=== PATIENT | male | born 1955 | race Caucasian/White ===

== ENCOUNTER 2022-01-14 01:46 | Emergency (ER) | payer MEDICARE ==
[~2022-01-14] VITALS: Ht 180.3 cm; Wt 122.5 kg
[~2022-01-14 01:46] MED LIST: METOLAZONE5 MG PO
--- OUTSIDE RECORDS SUMMARY | 2022-01-14 01:54 | XMS ---
PreManage Notification: CORNELIO SENIOR Security Internal Wholesaler Events No recent Security Events currently on file CRITERIA MET - [facility] - 2 Visits in 30 Days - 6 ED Visits in 6 Months - [facility] - 3 Facilities in 90 Days CARE PROVIDERS [place] Nurse Practitioner: Family Current PHONE: [phone] Isela has no Care Guidelines for this patient. E.D. VISIT COUNT (12 MO.) 8 Sammie Ayala 4 [facility] 1 [facility] ED 2 [facility] NOTE: Visits indicate total known visits. ED/C VISIT TRACKING (12 MO.) 01/14/2022 01:47 KELSY Catherine TYPE: Emergency COMPLAINT: - SHORTNESS OF BREATH 01/13/2022 16:03 KELSY Diamond [place] TYPE: Emergency COMPLAINT: - CHEST PAIN 01/05/2022 07:05 [facility] Luci [facility] TYPE: Emergency DIAGNOSES: - Heart failure, unspecified - COVID-19 - Acute respiratory failure, unspecified whether with hypoxia or hypercapnia - Shortness of Breath 01/05/2022 00:40 [facility] TYPE: Emergency DIAGNOSES: - Shortness of breath - Shortness of Breath 01/01/2022 08:20 [facility] López [facility] TYPE: Emergency COMPLAINT: - Shortness of Breath_1821- SOB - SHORTNESS OF BREATH - SUICIDAL IDEATIONS DIAGNOSES: 0. Suicidal ideations 1. Supraventricular tachycardia 4. Chronic obstructive pulmonary disease, unspecified 5. Heart failure, unspecified 6. watermelon inspector (current) use of insulin 7. watermelon inspector (current) use of aspirin 8. Other fpc (current) drug therapy 9. Personal history of nicotine dependence 12/31/2021 11:04 Devyn López [facility] TYPE: Emergency COMPLAINT: - Suicidal_ambulance 1823 12/19/2021 15:27 Merged With [facility] Olivier [facility] TYPE: Emergency DIAGNOSES: - Acute and chronic respiratory failure with hypoxia - Type 2 diabetes mellitus with hyperglycemia - Chronic obstructive pulmonary disease, unspecified - Atherosclerotic heart disease of [place] coronary artery without angina pectoris - Nonrheumatic mitral (valve) insufficiency - watermelon inspector (current) use of insulin - Heart failure, unspecified - Generalized edema - Hypoxemia - Shortness of Breath - Essential (primary) hypertension - Acute systolic (congestive) heart failure 12/16/2021 03:55 Sammie [facility] TYPE: Emergency COMPLAINT: - Ambulance_Medic 1822--SOB - SHORTNESS OF BREATH - COUGH, UNSPECIFIED DIAGNOSES: 0. Shortness of breath 1. Chronic obstructive pulmonary disease with (acute) exacerbation 4. Type 2 diabetes mellitus without complications 5. Hypertensive heart disease with heart failure 6. Heart failure, unspecified 7. detention (current) use of insulin 8. Other fpc (current) drug therapy 9. detention (current) use of aspirin 10. Personal history of nicotine dependence 12/14/2021 02:29 [facility] Costa [facility] TYPE: Emergency DIAGNOSES: - Suicidal ideations - Visual hallucinations - Medical Clearance - medical problem 12[facility]13[facility]2021 16[facility]: Emergency DIAGNOSES: - Difficulty Breathing - Suicidal Thoughts 12/10/2021 14:50 Caroline Hernandez [place] TYPE: Emergency COMPLAINT: - CHEST PAIN DIAGNOSES: - Type 2 diabetes mellitus with hyperglycemia - Cellulitis of left lower limb - Cellulitis of right lower limb 12[facility]21 03[facility] TYPE: Emergency DIAGNOSES: - Chest Pain - Chest pain, unspecified 11/25/2021 04:51 Sammie [facility] TYPE: Emergency COMPLAINT: - Shortness of Breath_SOB \E\T\E\ CP, Hx COPD. Left AMA yesterday 11/24/2021 02:17 Sammie JoDemarcus [place] TYPE: Emergency COMPLAINT: - Shortness of Breath_SOB, ANXIETY, NEED O2 - SHORTNESS OF BREATH - DYSPNEA UNSPECIFIED - CHEST PAIN UNSPECIFIED DIAGNOSES: 0. Shortness of breath 1. Abrasion, right lesser toe(s), initial encounter 5. Unspecified fall, initial encounter 6. Unspecified place or not applicable 7. Chronic obstructive pulmonary disease, unspecified 8. Type 2 diabetes mellitus without complications 9. Hypertensive heart disease with heart failure 10. Heart failure, unspecified 11. Peripheral vascular disease, unspecified 12. detention (current) use of aspirin 13. detention (current) use of insulin 14. Other fpc (current) drug therapy 15. Personal history of nicotine dependence 16. Contact with and (suspected) exposure to COVID-19 17. Dependence on supplemental oxygen 18. Patient's noncompliance with other medical treatment and regimen 11/23/2021 10:49 Michelet MARQUEZ TYPE: Emergency COMPLAINT: - Foot blisters 11/23/2021 03:32 Michelet MARQUEZ TYPE: Emergency COMPLAINT: - sob/bleeding from feet/ type 2 diabetic 03/07/2021 21:14 Devynaviva López [facility] TYPE: Emergency COMPLAINT: - Confusion_confusion - SHORTNESS OF BREATH - SYNCOPE AND COLLAPSE - DISORIENTATION UNSPECIFIED DIAGNOSES: 0. Syncope and collapse 1. Other stimulant use, unspecified, uncomplicated 5. Chronic obstructive pulmonary disease, unspecified 6. Heart failure, unspecified 7. Type 2 diabetes mellitus without complications 8. Personal history of nicotine dependence 9. detention (current) use of insulin 10. watermelon inspector (current) use of aspirin 11. Other fpc (current) drug therapy 12. CONTACT W \E\T\E\ (SUSP) EXPOS COVID- 03/02/2021 07:30 Sammie BAUTISTA TYPE: Emergency COMPLAINT: - Shortness of Breath - SHORTNESS OF BREATH DIAGNOSES: 0. Shortness of breath 1. Chronic obstructive pulmonary disease with (acute) exacerbation 3. Heart failure, unspecified 4. watermelon inspector (current) use of aspirin 5. Other fpc (current) drug therapy 6. detention (current) use of insulin 7. CONTACT W \E\T\E\ (SUSP) EXPOS COVID-19 02/06/2021 04:07 Sammie BAUT[place]A TYPE: Emergency COMPLAINT: - Shortness of Breath - SHORTNESS OF BREATH - COUGH DIAGNOSES: 0. Shortness of breath 1. Chronic obstructive pulmonary disease, unspecified 4. Heart failure, unspecified 5. Other watermelon inspector (current) drug therapy 6. watermelon inspector (current) use of aspirin 7. detention (current) use of insulin 8. Personal history of nicotine dependence 9. CONTACT W \E\T\E\ (SUSP) EXPOS COVID-19 INPATIENT VISIT TRACKING (12 MO.) 01/[facility]22 07[facility] [place] [facility] DIAGNOSES: - Acute and chronic respiratory failure with hypoxia - Heart failure, unspecified - Unspecified mood [affective] disorder - Acute on chronic systolic (congestive) heart failure - Chronic obstructive pulmonary disease, unspecified - Generalized edema - Other stimulant use, unspecified, uncomplicated - Acute respiratory failure, unspecified whether with hypoxia or hypercapnia - Pulmonary hypertension, unspecified - COVID-19 - Other cardiomyopathies - Essential (primary) hypertension - Adjustment disorder with anxiety 12/19/2021 15:[facility] DIAGNOSES: - Chronic obstructive pulmonary disease with (acute) exacerbation - Other cardiomyopathies - Tobacco use - Heart failure, unspecified - Edema, unspecified - Hypoxemia - Ventricular tachycardia - Morbid (severe) obesity due to excess calories - Essential (primary) hypertension - Body mass index [BMI] 38.0-38.9, adult - Acute on chronic systolic (congestive) heart failure - Type 2 diabetes mellitus with hyperglycemia - detention (current) use of insulin - Atherosclerotic heart disease of [place] coronary artery without angina pectoris - Acute and chronic respiratory failure with hypoxia - Other malaise - Other stimulant abuse, uncomplicated - Insomnia, unspecified - Type 2 diabetes mellitus without complications - Acute systolic (congestive) heart failure - Chronic obstructive pulmonary disease, unspecified - Generalized edema - Nonrheumatic mitral (valve) insufficiency 12/01/2021 03:40 [facility] TYPE: Critical Care DIAGNOSES: - Hypokalemia - Other cardiomyopathies - Chronic obstructive pulmonary disease with (acute) exacerbation - Acute and chronic respiratory failure with hypercapnia - Nonrheumatic mitral (valve) insufficiency - watermelon inspector (current) use of insulin - Encounter for palliative care - Other malaise - Chronic respiratory failure with hypoxia - Pulmonary hypertension, unspecified - Chronic respiratory failure with hypercapnia - Type 2 diabetes mellitus with hyperglycemia - Generalized edema - Acute and chronic respiratory failure with hypoxia - Other stimulant use, unspecified, uncomplicated - Other specified counseling - Adverse effect of carbonic-anhydrase inhibitors, benzothiadiazides and other diuretics, initial encounter - Chest pain, unspecified - Gross hematuria - Acute on chronic systolic (congestive) heart failure 11/25/2021 04:51 Sammie Ayala [place] [facility] TYPE: Medical Surgical COMPLAINT: - Shortness of Breath_SOB \E\T\E\ CP, Hx COPD. Left AMA yesterday [email or web address]
[2022-01-14] MEDS ORDERED: ATORVASTATIN CA10 MG PO (01:56)
[2022-01-14] MEDS ORDERED: ASPIRIN81 MG PO (01:56)
[2022-01-14] MEDS ORDERED: FUROSEMIDE40 MG PO (01:56)
[2022-01-14] MEDS ORDERED: PREGABALIN150 MG PO (01:57)
[2022-01-14] MEDS ORDERED: POTASSIUM CHLO10 ME2 PO (01:57)
[2022-01-14] MEDS ORDERED: NOVOLOG FL100 UNIT/1 SUB-Q (01:57)
--- NOTE | 2022-01-17 11:42 | EKG ---
[facility] [address] [facility] [place] [address] Signed Sinus tachycardia Left axis deviation Incomplete right bundle branch block Inferior infarct , age undetermined Abnormal ECG When compared with ECG of 13-JAN-2022 16:02, (Unconfirmed) premature ventricular complexes are no longer present Inferior infarct is now present Confirmed by RADHA THOMPSON MD ([id number] on 01/17/2022 11:41:50 AM Electronically Signed By: RADHA THOMPSON MD 01/17/22 1142 PATIENT NAME: CORNELIO SENIOR Electrocardiogram DATE OF : 55 PHYSICIAN: RADHA THOMPSON MD REPORT #: [id number] REPORT IS CONFIDENTIAL AND NOT TO BE RELEASED WITHOUT AUTHORIZATION
== END 2022-01-14 05:01 | disposition home or self-care (01) ==
LOC: ED 01:46
DX: I50.9 Heart failure, unspecified (principal); J44.9 Chronic obstructive pulmonary disease, unspecified; E11.9 Type 2 diabetes mellitus without complications; Z88.0 Allergy status to penicillin; Z88.5 Allergy status to narcotic agent; Z88.8 Allergy status to other drugs, medicaments and biological substances; Z79.899 Other long term (current) drug therapy; Z79.82 Long term (current) use of aspirin; Z79.4 Long term (current) use of insulin; Z91.14 Patient's other noncompliance with medication regimen
CPT/HCPCS: 36415; 71045; 80053; 83735; 83880; 84484; 85025; 93005; 93010; 96374; 99285-25; J1940